=== PATIENT | female | born 1970 | race Caucasian/White ===

== ENCOUNTER 2021-06-27 21:59 | Emergency (ER) | payer SELFPAY ==
[~2021-06-27] VITALS: Ht 162.6 cm; Wt 88.5 kg
[2021-06-27 21:59] VITALS: BP 114/79
[2021-06-27] MEDS ORDERED: IBUPROFEN 400 MG TABLET ONE (22:33)
[2021-06-27] MEDS: IBUPROFEN 400 MG TABLET PO ONE (22:36)
== END 2021-06-27 23:31 | disposition home or self-care (01) ==
LOC: ER 22:11
DX: M79.10 Myalgia, unspecified site (principal)